=== PATIENT | female | born 1960 | race Caucasian/White ===

== ENCOUNTER 2019-12-13 09:21 | Outpatient (CLI) | payer BC, SELFPAY ==
--- NOTE | ~2019-12-13 | DEXA_ITS ---
BMD(1) Young-Adult(2) Age-Matched(3) Region (g/cm2) T-score Z-score WHO Classification L1 0.828 -2.5 -1.0 Osteoporosis L2 0.887 -2.7 -1.1 Osteoporosis L3 1.055 -1.3 0.3 Osteopenia L4 0.897 -2.5 -0.9 Osteoporosis L1-L4 0.917 -2.2 -0.7 Osteopenia Trend: L1-L4 Change vs Change vs Measured Age BMD(1) Baseline Previous Date (years) (g/cm2) (%) (%) 12/13/2019 [age] 0[age]917 baseline - 1 - Statistically 68% of repeat scans fall within 1SD (+- 0.010 g/cm2 for AP Spine L1-L4) 2 - [place] (Combined NHANES (ages 20-30) / Navigator[employer] (ages 20-40)) AP Spine Reference Population (v112) 3 - Matched for Age, Weight (females 25-100 kg), Ethnic 11 - World Health Organization - Definition of Osteoporosis and Osteopenia for Women: Normal = T-score at or above -1.0 SD; Osteopenia = T-score between -1.0 and -2.5 SD; Osteoporosis = T-score at or below -2.5 SD; (WHO definitions only apply when a young healthy Women reference database is used to determine T-scores.) Printed: 12/13/2019 9:52:41 AM (13.60)76:3.00:50.00:12.0 0.00:10.02 0.60x1.05 16.7:%Fat=20.5% 0.00:0.00 0.00:0.00 Filename: [id number] Scan Mode: Standard;OneScan 37.0 [employer] [id number] BMD(1) Young-Adult(2,7) Age-Matched(3) Region (g/cm2) T-score Z-score WHO Classification Neck Left 0.765 -2.0 -0.5 Osteopenia Right 0.745 -2.1 -0.6 Osteopenia Mean 0.755 -2.0 -0.6 Osteopenia Difference 0.020 0.1 0.1 - Total Left 0.743 -2.1 -0.9 Osteopenia Right 0.715 -2.3 -1.1 Osteopenia Mean 0.729 -2.2 -1.0 Osteopenia Difference 0.028 0.2 0.2 - Hip Esopus Length Comparison (mm) (Right = 104.3 mm) (Mean = 105.1 mm) (Left = 104.2 mm) Trend: Total Mean Change vs Change vs Measured Age BMD(1) Baseline Previous Date (years) (g/cm2) (%) (%) 12/13/2019 59.8 0[age]729 baseline - 1 - Statistically 68% of repeat scans fall within 1SD (+- 0.010 g/cm2 for DualFemur Total) 2 - [place] (Combined NHANES (ages 20-30) / [employer] (ages 20-40)) Femur Reference Population (v112) 3 - Matched for Age, Weight (females 25-100 kg), Ethnic 7 - DualFemur Total T-score difference is 0.2. Asymmetry is None. 11 - World Health Organization - Definition of Osteoporosis and Osteopenia for Women: Normal = T-score at or above -1.0 SD; Osteopenia = T-score between -1.0 and -2.5 SD; Osteoporosis = T-score at or below -2.5 SD; (WHO definitions only apply when a young healthy Women reference database is used to determine T-scores.) Printed: 12/13/2019 9:52:42 AM (13.60); Filename: [id number]; Right Femur; 16.7:%Fat=27.4%; Neck Angle (deg)= 64; Scan Mode: Standard 37.0 uGy; Left Femur; 16.7:%Fat=28.5%; Neck Angle (deg)= 71; Scan Mode: Standard 37.0 uGy 3dim [id number] Dear Ravi Maynard, Your patient Monika Monteiro completed a BMD test on 12/13/2019 using the 3dim DXA System (analysis version: 13.60) manufactured by [employer]. The following summarizes the results of our evaluation. PATIENT BIOGRAPHICAL: Name: Monika Monteiro Date: 1960 Height: 64.0 in. Gender: Female Exam Date: 12/13/2019 Weight: 128.0 lbs. Indications:
== END 2019-12-13 09:22 | disposition home or self-care (01) ==
PROVIDERS: PCP Family Medicine; Visit Provider Family Medicine
DX: Z78.0 Asymptomatic menopausal state (principal)
CPT/HCPCS: 77080